=== PATIENT | female | born 1970 | race Caucasian/White ===

== ENCOUNTER 2017-07-20 10:06 | Emergency (ER) | payer OTHER ==
[~2017-07-20] VITALS: Ht 154.9 cm; Wt 84.1 kg
[~2017-07-20 10:06] MED LIST: ALBU1AER9 INH
[2017-07-20 10:15] VITALS: TEMP 36.7; Ht 154.9 cm; Wt 84.1 kg
--- NOTE | 2017-07-20 10:37 | EMERGENCY ROOM VISIT NOTE ---
History Report prepared by Charis: Bolivar Gonzalez Under the Supervision of: Dr. Mariano Awan M.D. First contact with patient: 10:18 Chief Complaint: CHEST PAIN Stated Complaint: CHEST PAIN History of Present Illness The patient is a 47 year old white female with a past medical history of pleurisy and chronic rashes who presents to the ED with a cc of intermittent chest pain, tightness, and pressure beginning two weeks ago that lasts for a second or two. Positive shortness of breath, bloating, and dry cough. Negative nausea, vomiting, recent car travel, plane travel. She called her doctor this morning, and they told her to come in for evaluation.The patient has a family history of CT, stroke, and cancer. She smokes marijuana, and she took an antacid which did not help. Source of History: patient Onset: two weeks ago Position: chest Quality: pressure, other (tightness) Timing: intermittent Associated Symptoms: + cough, + SOB, No nausea, No vomiting Review of Systems See HPI for pertinent positives and negatives. A total of ten systems were reviewed and were otherwise negative. Past Medical & Surgical Surgical Problems: (1) History of hysterectomy Family History Diabetes mellitus FHx: cancer Hypertension Kidney disease Kidney stones Social History Smoking Status: Current Every Day Smoker Alcohol Use: occasionally Drug Use: none Marital Status: single Occupation Status: employed Current/Historical Medications No Active Prescriptions or Reported Meds Allergies Coded Allergies: BEE STING (Verified Allergy, Unknown, UNK, 07/20/17) Tramadol (Verified Adverse Reaction, Intermediate, NAUSEA;VOMITING, ) Codeine (Verified Adverse Reaction, Mild, GI UPSET;NAUSEA, 07/20/17) Ibuprofen (Verified Adverse Reaction, Mild, GI UPSET;NAUSEA, 07/20/17) Sulfamethoxazole w/Trimethoprim (Verified Adverse Reaction, Mild, blisters , 07/20/17) Uncoded Allergies: SPIDERS (Allergy, Unknown, UNK, 10/22/11) Physical Exam Vital Signs Date Time Temp Pulse Resp B/P (MAP) Pulse Ox O2 Delivery O2 Flow Rate FiO2 07/20/17 12:50 76 18 121/78 98 Room Air 07/20/17 12:04 72 18 122/86 97 Room Air 07/20/17 10:48 99 Room Air 07/20/17 10:46 99 Room Air 07/20/17 10:44 75 10/9/17 10:15 36.7 91 20 120/82 98 Room Air Physical Exam GENERAL: Awake, alert, well-appearing, NAD HENT: Normocephalic, atraumatic. EYES: Normal conjunctiva. Sclera non-icteric. NECK: Supple. No nuchal rigidity. FROM. RESPIRATORY: CTAB, no rhonchi, wheezing, crackles CARDIAC: RRR, no MRG ABDOMEN: Soft, NTND, BS+ MSK: No chest wall TTP, no LE edema NEURO: GCS 15, CN 2-12 intact, moves all 4s on command SKIN: Blanching confluent rash on her back which she states is chronic. No jaundice noted. Medical Decision & Procedures ER Provider Diagnostic Interpretation: Radiology results as stated below per my review and radiologist interpretation: CHEST ONE VIEW PORTABLE CLINICAL HISTORY: Chest pain. COMPARISON STUDY: Chest radiograph and chest CT June 03, 2016. FINDINGS: Lung volumes are normal. Lungs are clear. No pneumothorax or pleural effusion is present. Cardiac size is normal. Mediastinal contours are normal. There is no evidence of pulmonary edema. The appearance of the chest is unchanged. IMPRESSION: No acute cardiopulmonary findings. Electronically signed by: Mason Pop M.D. 07/20/2017 11:01 AM Dictated Date/Time: 07/20/2017 11:00 AM Laboratory Results 07/20/17 10:45 Red Blood Count 4.25, Mean Corpuscular Volume 94.4, Mean Corpuscular Hemoglobin 31.5, Mean Corpuscular Hemoglobin Concent 33.4, Mean Platelet Volume 11.0, Neutrophils (%) (Auto) 49.3, Lymphocytes (%) (Auto) 38.3, Monocytes (%) (Auto) 10.0, Eosinophils (%) (Auto) 1.7, Basophils (%) (Auto) 0.2, Neutrophils # (Auto ) 3.11, Lymphocytes # (Auto) 2.41, Monocytes # (Auto) 0.63, Eosinophils # (Auto ) 0.11, Basophils # (Auto) 0.01 07/20/17 10:45 Test 07/20/17 10:45 07/20/17 11:35 White Blood Count 6.30 K/uL (4.8-10.8) Red Blood Count 4.25 M/uL (4.2-5.4) Hemoglobin 13.4 g/dL (12.0-16.0) Hematocrit 40.1 % (37-47) Mean Corpuscular Volume 94.4 fL (80-100) Mean Corpuscular Hemoglobin 31.5 pg (25-34) Mean Corpuscular Hemoglobin Concent 33.4 g/dl (32-36) Platelet Count 213 K/uL (130-400) Mean Platelet Volume 11.0 fL (7.4-10.4) Neutrophils (%) (Auto) 49.3 % Lymphocytes (%) (Auto) 38.3 % Monocytes (%) (Auto) 10.0 % Eosinophils (%) (Auto) 1.7 % Basophils (%) (Auto) 0.2 % Neutrophils # (Auto) 3.11 K/uL (1.4-6.5) Lymphocytes # (Auto) 2.41 K/uL (1.2-3.4) Monocytes # (Auto) 0.63 K/uL (0.11-0.59) Eosinophils # (Auto) 0.11 K/uL (0-0.5) Basophils # (Auto) 0.01 K/uL (0-0.2) RDW Standard Deviation 46.6 fL (36.4-46.3) RDW Coefficient of Variation 13.5 % (11.5-14.5) Immature Granulocyte % (Auto) 0.5 % Immature Granulocyte # (Auto) 0.03 K/uL (0.00-0.02) Anion Gap 8.0 mmol/L (3-11) Est Creatinine Clear Calc Drug Dose 76.0 ml/min Estimated GFR () 88.8 Estimated GFR (Non- 76.6 BUN/Creatinine Ratio 14.6 (10-20) Calcium Level 9.4 mg/dl (8.5-10.1) Total Bilirubin 0.4 mg/dl (0.2-1) Direct Bilirubin 0.1 mg/dl (0-0.2) Aspartate Amino Transf (AST/SGOT) 20 U/L (15-37) Alanine Aminotransferase (ALT/SGPT) 27 U/L (12-78) Alkaline Phosphatase 67 U/L (45-117) Troponin I < 0.015 ng/ml (0-0.045) Total Protein 7.7 gm/dl (6.4-8.2) Albumin 4.0 gm/dl (3.4-5.0) Lipase 251 U/L (73-393) Prothrombin Time 10.2 SECONDS (9.0-12.0) Prothromb Time International Ratio 1.0 (0.9-1.1) Activated Partial Thromboplast Time 26.0 SECONDS (21.0-31.0) Partial Thromboplastin Ratio 1.0 Laboratory results reviewed by me ECG Indication: chest pain Rate (beats per minute): 82 Rhythm: normal sinus Findings: T-wave inversion (in lead 3), other (Normal intervals. No other contiguous changes) ED Course 1018: The patient was evaluated in room C9. A complete history and physical exam was performed. 1240: I reevaluated the patient. Discussed results and discharge instructions: She verbalized understanding and agreement. The patient is ready for discharge. Medical Decision The patient is a 47 year old white female with a past medical history of pleurisy and chronic rashes who presents to the ED with a cc of intermittent chest pain, tightness, and pressure beginning two weeks ago that lasts for a second or two. Positive shortness of breath, bloating, and dry cough. Negative nausea, vomiting recent car travel, plane travel. She called her doctor this morning, and they told her to come in for evaluation.The patient has a family history of CT, stroke, and cancer. She smokes marijuana, and she took an antacid which did not help. Triage Nursing notes reviewed. The patient's presentation and history were concerning for etiologies such as cardiac ischemia, aortic dissection, pulmonary embolism, pneumonia, pneumothorax , musculoskeletal, infections, pericarditis, myocarditis, esophageal rupture, gastrointestinal, as well as others were entertained. Patient was seen and evaluated the bedside. Patient was complaining of some left-sided chest pain that of been ongoing for several weeks. Patient denies any RUFFIN or chest pain with exertion. Patient denies any lower extremity swelling. Patient is PRC negative less likely PE. Patient does have a heart score of 3. Patient was told and given follow-up with cardiology. Patient does not need emergent workup given her fairly normal EKG and negative troponin. Patient did not have any acute chest pain. Patient chest x-ray clear. Patient was given strict follow-up, discharge, return precautions. Patient care patient was safely discharged home. Medication Reconcilliation Current Medication List: was personally reviewed by mi Blood Pressure Screening Patient's blood pressure: Normal blood pressure Impression Primary Impression: Left sided chest pain Scribe Attestation The scribe's documentation has been prepared under my direction and personally reviewed by me in its entirety. I confirm that the note above accurately reflects all work, treatment, procedures, and medical decision making performed by me. Departure Information Dispostion Home / Self-Care Prescriptions No Active Prescriptions or Reported Meds Referrals Abdiel Maddox M.D. (PCP) Teja Brooks, D.O. Forms Call Back Authorization, HOME CARE DOCUMENTATION FORM, IMPORTANT VISIT INFORMATION Patient Instructions Chest Pain - [facility], [facility] Additional Instructions Please return to the emergency department if you have worsening or recurrent symptoms not amenable to at-home treatment. Please call for a follow-up appointment with her primary care physician. Please take your medications as prescribed. If you have other concerns and/or complaints please feel free to also call your primary care physician's office or return the ED for further evaluation, management, and treatment. You may take 600 mg Ibuprofen every 6 hours as needed for pain with food for no more than 2 consecutive days. You may take tylenol 1000mg every 6 hours as needed for pain. You may take motrin and tylenol separately or at the same time. Please avoid smoking marijuana. Please call for a follow up appointment w/ Dr. Brooks given your chest pain. You have been examined and treated today on an emergency basis only. This is not a substitute for, or an effort to provide, complete comprehensive medical care. It is impossible to recognize and treat all injuries or illnesses in a single emergency department visit. It is therefore important that you follow up closely with [facility]. Call as soon as possible for an appointment. Thank you for your time and consideration. I look forward to speaking with you again soon. Please don't hesitate to call us if you have any questions.
[2017-07-20 10:48] VITALS: O2SAT 99
[2017-07-20 10:55] LABS: BASO % 0.2 %; BASO ABS # 0.01 K/uL (0-0.2); COMPLETE YES; EOS % 1.7 %; HEMATOCRIT 40.1 % (37-47); IG% 0.5 %; LYMPH % 38.3 %; LYMPH ABS # 2.41 K/uL (1.2-3.4); MEAN CELL VOLUME 94.4 fL (80-100); MEAN CORPUSCULAR HEMOGLOBIN 31.5 pg (25-34); MEAN CORPUSCULAR HGB CONC 33.4 g/dl (32-36); NEUT % 49.3 %; PLATELET COUNT 213 K/uL (130-400); RED BLOOD COUNT 4.25 M/uL (4.2-5.4)
--- NOTE | 2017-07-20 11:02 | DIAGNOSTIC IMAGING REPORT ---
CHEST ONE VIEW PORTABLE CLINICAL HISTORY: Chest pain. COMPARISON STUDY: Chest radiograph and chest CT June 03, 2016. FINDINGS: Lung volumes are normal. Lungs are clear. No pneumothorax or pleural effusion is present. Cardiac size is normal. Mediastinal contours are normal. There is no evidence of pulmonary edema. The appearance of the chest is unchanged. IMPRESSION: No acute cardiopulmonary findings. Electronically signed by: Mason Pop M.D. 07/20/2017 11:01 AM Dictated Date/Time: 07/20/2017 11:00 AM
[2017-07-20 11:21] LABS: ALT/SGPT 27 U/L (12-78); BLOOD UREA NITROGEN 13 mg/dl (7-18); BUN/CREATININE RATIO 14.6 (10-20); CALCIUM 9.4 mg/dl (8.5-10.1); CARBON DIOXIDE 24 mmol/L (21-32); CHLORIDE 106 mmol/L (98-107); CREATININE 0.89 mg/dl (0.60-1.20); GLUCOSE 106 mg/dl (70-99); SODIUM 138 mmol/L (136-145)
[2017-07-20 11:26] LABS: ALKALINE PHOSPHATASE 67 U/L (45-117); AST/SGOT 20 U/L (15-37)
[2017-07-20 11:56] LABS: PROTHROMBIN TIME (PATIENT) 10.2 SECONDS (9.0-12.0)
[2017-07-20 12:50] VITALS: BP 121/78; PULSE 76; O2SAT 98
== END 2017-07-20 12:52 | disposition home or self-care (01) ==
LOC: C.EDB 10:08 → C.EDC 12:52
DX: R07.9 Chest pain, unspecified (principal); Z82.49 Family history of ischemic heart disease and other diseases of the circulatory system; Z80.9 Family history of malignant neoplasm, unspecified; Z82.3 Family history of stroke; F12.90 Cannabis use, unspecified, uncomplicated; Z90.710 Acquired absence of both cervix and uterus; Z83.3 Family history of diabetes mellitus

== ENCOUNTER 2025-06-14 08:58 | Inpatient (IN) ==
--- NOTE | 2025-06-14 09:34 | Emergency Department Note ---
Impression & Plan Hypoxia, Bilateral wheezing ED Provider Note Diagnosis: Hypoxia, wheezing Disposition: Admission Condition: Good CHIEF COMPLAINT: Shortness of breath HPI: Patient is a 55-year-old female presenting with worsening shortness of breath. I saw the patient on June 08 approximately 5 to 6 days prior diagnosed her with pneumonia and started on doxycycline. Patient states that since that time she has become more short of breath. Patient states over the past 3 days she has started to have wheezing. Patient denies any history of asthma. Patient has not had fevers at home. Patient audibly wheezing upon arrival in the emergency room and evaluation. PAST MEDICAL HISTORY: See Below PAST SURGICAL HISTORY: See Below SOCIAL HISTORY: See Below HOME MEDICATIONS: See Below ALLERGIES: See Below VITALS: See Below PHYSICAL EXAMINATION: GENERAL: Moderate distress EYE EXAM: Normal conjunctiva. OROPHARYNX: Moist mucus membranes. Grossly normal dentition. NECK: Supple, LUNGS: Audible wheezing bilaterally HEART: Tachycardia ABDOMEN: Abdomen soft, non-tender, normo-active bowel sounds, no masses, no rebound or guarding BACK: No CVA TTP. SKIN: No rashes and no bruising. UPPER EXTREMITIES: Upper extremities are grossly normal LOWER EXTREMITIES: Grossly normal, no edema. NEURO EXAM: A&O x3,, normal speech, moves all 4 extremities PSYCH: Cooperative MEDICAL DECISION MAKING: Reviewed external documents: History obtained from: Patient ER Course: Patient is a 55-year-old female presenting with complaint of worsening shortness of breath. Patient audibly wheezing on exam today. Patient diagnosed with pneumonia 4 to 5 days prior. Patient chest x-ray today clear. Patient does troponin and BNP negative. Patient's COVID testing negative. Patient given an hour-long DuoNeb treatment and steroids. Patient on reevaluation became hypoxic requiring 2 L nasal cannula oxygen support. Patient on reevaluation having audible wheezing again and ordered another DuoNeb treatment. Patient mated to hospital service further treatment and evaluation Labs (independently interpreted) are significant for: No leukocytosis, negative troponin Imaging results (independently interpreted): Chest x-ray clear EKG interpretation (independently interpreted): Sinus tachycardia no ST segment elevation or depression Medications given: DuoNebs x 3, Solu-Medrol Consultants: Hospitalist service Triage Nursing notes reviewed and agree them. Vital Signs: reviewed and remarkable for: Tachycardia Critical care time 40 minutes, patient acutely hypoxic does not use oxygen at baseline. Patient requiring greater than 3 DuoNeb treatments with continued wheezing. Past Med/Surg History Problem List (Updated 06/14/25 @ 14:54 by Miguel Ángel Cuevas DO) Bilateral wheezing (Acute) Hypoxia (Acute) Hemoptysis COPD (chronic obstructive pulmonary disease) Tick bite (Acute) Weakness (Acute) Chest pain (Acute) Hypothyroid COVID-19 (Acute) Person under investigation for COVID-19 (Acute) Breast swelling Sensorineural hearing loss (SNHL) of both ears Encounter for examination following treatment at hospital Screening for breast cancer Decreased hearing of both ears Irritation of vulva Mucosal irritation of oral cavity Sorethroat Mallet deformity of left ring finger Seen by ortho, had splint x 6 wks. Still not resolved. Encounter for pre-operative examination Dysmenorrhea (Acute) Back pain (Acute) Tendon injury Finger pain Medical History (Updated 06/14/25 @ 14:54 by Miguel Ángel Cuevas DO) Ovarian cyst X2 Acid reflux SELF DX History of pleurisy MOST RECENT : LAST MONTH..RESOLVED Surgical History History of colonoscopy History of hernia surgery History of neck surgery DENIES LIMITED ROM S/P endometrial ablation History of hysterectomy Family History Mother Deep vein thrombosis Coronary heart disease Alzheimer disease Myocardial infarction Father Dextrocardia Lung cancer Brother Colorectal cancer at 50 yr age Family history of esophageal cancer Brother Cirrhosis of liver Grandmother (Maternal) Breast cancer Denies family history of Ovarian cancer Prostate cancer Social History Smoking Status: Current every day smoker Tobacco Type: Cigarettes Do You Dip or Chew Tobacco: No; Hx Alcohol Use: Yes Hx Substance Use: Yes Last Used Substance: Hours (ago) Last Used Substance Other:: This morning Substance Use Type Other:: "JOINT OR 2 A DAY"/ EDU GIVEN Preferred Language: Sami Communication Ability: Effective Info Specialist Required: No Beliefs That Will Affect Care: None marital status: Current Living Situation: Spouse Current Living Situation Comment: LIVES WITH FRIENDKALE Feels Safe at Home: Yes Dental Care, Regularly: Yes Seatbelt Use: always Assistive Devices: Glasses Allergies Allergies Allergy/AdvReac Type Severity Reaction Status Date / Time bee venom protein (honey bee) Allergy Severe THROAT Verified 06/14/25 13:15 SWELLS UP spider venom Allergy Severe CAN CARRY Unverified 06/14/25 13:15 SAME VENOM BEES, BEE ALLERGY : THROAT SWELLING cyclobenzaprine Allergy Intermediate itching Verified 06/14/25 13:15 [From Flexeril] sulfamethoxazole Allergy Intermediate Hives Verified 06/14/25 13:15 trimethoprim Allergy Intermediate Hives Verified 06/14/25 13:15 codeine AdvReac Intermediate GI Verified 06/14/25 13:15 UPSET;NAUSEA ibuprofen AdvReac Intermediate GI Verified 06/14/25 13:15 UPSET;NAUSEA NSAIDS (Non-Steroidal AdvReac Intermediate All Unverified 06/14/25 13:15 Anti-Inflamma anti-inflammatory meds cause GI Upset paroxetine [From Paxil] AdvReac Intermediate Nausea Verified 06/14/25 13:15 tramadol AdvReac Intermediate NAUSEA;VOMI Verified 06/14/25 13:15 TING Home Meds Previous Rx's Medication Instructions Recorded doxycycline hyclate 100 mg capsule 100 mg PO BID 7 days #14 caps 06/08/25 Results & Data (ED) Vital Signs Vital Signs - 24 hr 06/14/25 09:12 06/14/25 09:27 06/14/25 09:28 Temperature 36.5 C Temperature Source Temporal Artery Scan Pulse Rate 99 H 113 H 106 H Pulse Rate [Right Finger] Respiratory Rate 22 20 Respiratory Effort / Characteristics Respiratory Pattern Blood Pressure 116/77 Blood Pressure [Left Arm] Blood Pressure Mean 90 Blood Pressure Mean [Left Arm] Pulse Oximetry 96 97 Oxygen Delivery Method Room Air Oxygen Flow Rate Sepsis New/Unexplained Change in Mental Status No Sepsis Action Taken by Nursing No Action Required 06/14/25 09:42 06/14/25 09:54 06/14/25 09:57 Temperature Temperature Source Pulse Rate 96 H Pulse Rate [Right Finger] 94 H 94 H Respiratory Rate 19 18 13 Respiratory Effort / Characteristics Spontaneous Respiratory Pattern Regular Blood Pressure Blood Pressure [Left Arm] 143/99 H Blood Pressure Mean Blood Pressure Mean [Left Arm] 113 Pulse Oximetry 98 98 97 Oxygen Delivery Method Room Air Room Air Oxygen Flow Rate Sepsis New/Unexplained Change in Mental Status Sepsis Action Taken by Nursing 06/14/25 09:57 06/14/25 10:12 06/14/25 10:20 Temperature Temperature Source Pulse Rate 94 H 103 H Pulse Rate [Right Finger] 104 H Respiratory Rate 13 20 19 Respiratory Effort / Characteristics Short of Breath Respiratory Pattern Regular Blood Pressure 143/94 H Blood Pressure [Left Arm] 143/99 H Blood Pressure Mean 133 Blood Pressure Mean [Left Arm] 113 Pulse Oximetry 97 100 100 Oxygen Delivery Method Room Air Nebulizer Oxygen Flow Rate Sepsis New/Unexplained Change in Mental Status Sepsis Action Taken by Nursing 06/14/25 10:30 06/14/25 10:36 06/14/25 10:45 Temperature Temperature Source Pulse Rate 109 H 95 H Pulse Rate [Right Finger] 104 H Respiratory Rate 20 24 13 Respiratory Effort / Characteristics Respiratory Pattern Blood Pressure 125/72 Blood Pressure [Left Arm] 125/72 Blood Pressure Mean 89 Blood Pressure Mean [Left Arm] 89 Pulse Oximetry 100 100 100 Oxygen Delivery Method Nebulizer Oxygen Flow Rate Sepsis New/Unexplained Change in Mental Status Sepsis Action Taken by Nursing 06/14/25 11:00 06/14/25 11:30 06/14/25 11:30 Temperature Temperature Source Pulse Rate 117 H Pulse Rate [Right Finger] 121 H Respiratory Rate 23 18 Respiratory Effort / Characteristics Respiratory Pattern Blood Pressure 128/82 107/77 Blood Pressure [Left Arm] 107/77 Blood Pressure Mean 106 87 Blood Pressure Mean [Left Arm] 87 Pulse Oximetry 99 91 Oxygen Delivery Method Nasal Cannula Oxygen Flow Rate 2 Sepsis New/Unexplained Change in Mental Status Sepsis Action Taken by Nursing 06/14/25 11:48 06/14/25 11:54 06/14/25 11:55 Temperature Temperature Source Pulse Rate 122 H Pulse Rate [Right Finger] Respiratory Rate 16 Respiratory Effort / Characteristics Respiratory Pattern Blood Pressure Blood Pressure [Left Arm] Blood Pressure Mean Blood Pressure Mean [Left Arm] Pulse Oximetry 97 87 L 97 Oxygen Delivery Method Room Air Nasal Cannula Oxygen Flow Rate 3 Sepsis New/Unexplained Change in Mental Status Sepsis Action Taken by Nursing 06/14/25 12:00 06/14/25 12:03 06/14/25 12:30 Temperature Temperature Source Pulse Rate 116 H 120 H Pulse Rate [Right Finger] 115 H Respiratory Rate 16 19 22 Respiratory Effort / Characteristics Respiratory Pattern Blood Pressure 105/74 Blood Pressure [Left Arm] 105/74 Blood Pressure Mean 84 Blood Pressure Mean [Left Arm] 84 Pulse Oximetry 99 99 97 Oxygen Delivery Method Nasal Cannula Oxygen Flow Rate 2 Sepsis New/Unexplained Change in Mental Status Sepsis Action Taken by Nursing 06/14/25 12:36 06/14/25 13:00 06/14/25 13:01 Temperature Temperature Source Pulse Rate 122 H 130 H Pulse Rate [Right Finger] 123 H Respiratory Rate 21 22 24 Respiratory Effort / Characteristics Respiratory Pattern Blood Pressure 105/69 118/74 Blood Pressure [Left Arm] 118/74 Blood Pressure Mean 81 86 Blood Pressure Mean [Left Arm] 88 Pulse Oximetry 94 99 99 Oxygen Delivery Method Nasal Cannula Oxygen Flow Rate 2 Sepsis New/Unexplained Change in Mental Status Sepsis Action Taken by Nursing Laboratory Data 06/14/25 09:46 06/14/25 09:46 Lab Results 06/14/25 06/14/25 06/14/25 Range/Units 09:45 09:46 10:01 WBC 5.46 (4.8-10.8) K/ul RBC 4.09 L (4.20-5.40) M/uL Hgb 12.7 (12.0-16.0) g/dl Hct 37.9 (37.0-47.0) % MCV 92.7 (80.0-100.0) fL MCH 31.1 (25.0-34.0) pg MCHC 33.5 (32.0-36.0) g/dL RDW Std Deviation 45.6 (36.4-46.3) fL RDW Coeff of Ben 13.4 (11.5-14.5) % Plt Count 177 (130-400) K/uL MPV 10.9 (9.4-12.4) fL Immature Gran % (Auto) 0.2 % Neut % (Auto) 68.7 % Lymph % (Auto) 16.3 % Cottle % (Auto) 9.3 % Eos % (Auto) 5.1 % Baso % (Auto) 0.4 % Neut # (Auto) 3.75 (1.40-6.50) K/uL Lymph # (Auto) 0.89 L (1.20-3.40) K/uL Cottle # (Auto) 0.51 (0.11-0.59) K/uL Eos # (Auto) 0.28 (0.00-0.50) K/uL Baso # (Auto) 0.02 (0.00-0.20) K/uL Immature Gran # (Auto) 0.01 (0.01-0.20) K/uL Sodium 141 (136-145) mmol/L Potassium 3.6 (3.5-5.1) mmol/L Chloride 106 (98-107) mmol/L Carbon Dioxide 25 (21-32) mmol/L Anion Gap 10 (3-11) BUN 10 (6-23) mg/dl Creatinine 0.89 (0.6-1.2) mg/dl Est Cr Clr Drug Dosing 69.3 ml/min eGFR 76.04 BUN/Creatinine Ratio 11.2 (10-20) Glucose 104 H (70-99(Fasting)) mg/dl Lactate 1.3 (0.4-2.0) mmol/L Calcium 9.2 (8.6-10.3) mg/dl Magnesium 1.9 (1.7-2.4) mg/dl Total Bilirubin 0.8 (0.2-1.0) mg/dl Direct Bilirubin 0.1 (0-0.2) mg/dl AST 21 (13-39) U/L ALT 18 (7-52) U/L Alkaline Phosphatase 79 (34-104) U/L Troponin I High Sens 2.9 (0-14) pg/ml Total Protein 7.0 (6.0-8.3) gm/dl Albumin 4.0 (3.4-5.0) gm/dl Procalcitonin < 0.02 (0-0.5) ng/ml Urine Color Urine Appearance (Clear) Urine pH (4.5-7.5) Ur Specific Reliance (1.000-1.030) Urine Protein (Negative) Urine Glucose (UA) (Negative) Urine Ketones (Negative) Urine Blood (Negative) Urine Nitrite (Negative) Urine Bilirubin (Negative) Urine Urobilinogen (Negative) Ur Leukocyte Esterase (Negative) Urine Comment SARS-CoV-2 (PCR) NEGATIVE (Negative) Influenza Type A (PCR) Negative (Neg) Influenza Type B (PCR) Negative (Neg) RSV (RT-PCR) Negative (Neg) 06/14/25 Range/Units 10:59 WBC (4.8-10.8) K/ul RBC (4.20-5.40) M/uL Hgb (12.0-16.0) g/dl Hct (37.0-47.0) % MCV (80.0-100.0) fL MCH (25.0-34.0) pg MCHC (32.0-36.0) g/dL RDW Std Deviation (36.4-46.3) fL RDW Coeff of Ben (11.5-14.5) % Plt Count (130-400) K/uL MPV (9.4-12.4) fL Immature Gran % (Auto) % Neut % (Auto) % Lymph % (Auto) % Cottle % (Auto) % Eos % (Auto) % Baso % (Auto) % Neut # (Auto) (1.40-6.50) K/uL Lymph # (Auto) (1.20-3.40) K/uL Cottle # (Auto) (0.11-0.59) K/uL Eos # (Auto) (0.00-0.50) K/uL Baso # (Auto) (0.00-0.20) K/uL Immature Gran # (Auto) (0.01-0.20) K/uL Sodium (136-145) mmol/L Potassium (3.5-5.1) mmol/L Chloride (98-107) mmol/L Carbon Dioxide (21-32) mmol/L Anion Gap (3-11) BUN (6-23) mg/dl Creatinine (0.6-1.2) mg/dl Est Cr Clr Drug Dosing ml/min eGFR BUN/Creatinine Ratio (10-20) Glucose (70-99(Fasting)) mg/dl Lactate (0.4-2.0) mmol/L Calcium (8.6-10.3) mg/dl Magnesium (1.7-2.4) mg/dl Total Bilirubin (0.2-1.0) mg/dl Direct Bilirubin (0-0.2) mg/dl AST (13-39) U/L ALT (7-52) U/L Alkaline Phosphatase (34-104) U/L Troponin I High Sens (0-14) pg/ml Total Protein (6.0-8.3) gm/dl Albumin (3.4-5.0) gm/dl Procalcitonin (0-0.5) ng/ml Urine Color Yellow Urine Appearance Clear (Clear) Urine pH 8.0 H (4.5-7.5) Ur Specific Reliance 1.006 (1.000-1.030) Urine Protein Negative (Negative) Urine Glucose (UA) Negative (Negative) Urine Ketones Negative (Negative) Urine Blood Negative (Negative) Urine Nitrite Negative (Negative) Urine Bilirubin Negative (Negative) Urine Urobilinogen Negative (Negative) Ur Leukocyte Esterase Negative (Negative) Urine Comment SARS-CoV-2 (PCR) (Negative) Influenza Type A (PCR) (Neg) Influenza Type B (PCR) (Neg) RSV (RT-PCR) (Neg) Administered Medications Hydrocodone Bit/Homatropine Methylb (Hydrocodone/Homatropine Syrup 5mg/1.5mg 5ml Udp) 5 ml PO Q6H PRN PRN Reason: Cough Stop: 06/28/25 13:15 Last Admin: 06/14/25 13:48 Dose: 5 ml Documented By: CHRISSY Discontinued Medications Albuterol (Albut/Ipratrop 3mg/0.5mg Neb 3 Ml Vial) 12 ml NEB ONE ONE; Protocol Stop: 06/14/25 09:28 Last Admin: 06/14/25 09:54 Dose: 12 ml Documented By: NIKOLAS Albuterol (Albut/Ipratrop 3mg/0.5mg Neb 3 Ml Vial) 3 ml NEB NOW STA; Protocol Stop: 06/14/25 12:49 Last Admin: 06/14/25 13:02 Dose: 3 ml Documented By: enedina Guaifenesin (Guaifenesin 600 Mg Tabcr) 1,200 mg PO NOW STA Stop: 06/14/25 13:21 Last Admin: 06/14/25 13:48 Dose: 1,200 mg Documented By: CHRISSY Sodium Chloride (Nss) 1,000 mls @ 999 mls/hr IV .Q1H1M SARAH Stop: 06/14/25 10:30 Last Infusion: 06/14/25 12:22 Dose: Infused Documented By: enedina Admin: 06/14/25 10:05 Dose: 999 mls/hr Documented By: enedina Cefepime HCl (Maxipime 2000mg) 2,000 mg in 20 mls @ 5 mls/min IV NOW STA; Protocol Stop: 06/14/25 09:30 Last Admin: 06/14/25 10:04 Dose: 5 mls/min Documented By: enedina Doxycycline Hyclate 100 mg/ (Dextrose) 100 mls @ 50 mls/hr IV NOW STA Stop: 06/14/25 15:20 Last Admin: 06/14/25 14:32 Dose: Not Given Documented By: ALEXANDREA Ioversol (Optiray 320 125ml) 118 ml IV ONCE ONE Stop: 06/14/25 13:30 Last Admin: 06/14/25 13:30 Dose: 118 ml Documented By: CHHAYA Methylprednisolone (Methylprednisolone 125 Mg/2 Ml Vial) 125 mg IV NOW STA Stop: 06/14/25 09:28 Last Admin: 06/14/25 10:04 Dose: 125 mg Documented By: cad Imaging Data Radiologist's Impression: Chest X-Ray 06/14/25 09:27 SINGLE VIEW CHEST CLINICAL HISTORY: Sepsis FINDINGS: An AP, portable, upright chest radiograph is compared to study dated 06/08/2025 and correlated with chest CT dated 06/03/2016. The cardiomediastinal silhouette is unremarkable. There is minimal bibasilar atelectasis. The lungs and pleural spaces are otherwise clear. No pneumothorax is seen. The bony thorax is grossly intact. IMPRESSION: No active disease in the chest. ACT 112: Negative or not required by law. Electronically signed by: Elijah Porter M.D. 06/14/2025 9:46 AM Chest CTA 06/14/25 13:11 CT ANGIOGRAM OF THE CHEST CLINICAL HISTORY: Cough. Hemoptysis. History of recent travel. COMPARISON STUDY: Chest x-ray dated 06/14/2025 TECHNIQUE: Following the IV administration of 118 cc of Optiray 320, CT angiogram of the chest was performed from the upper abdomen to the thoracic inlet utilizing the pulmonary embolus protocol. Images are reviewed in the axial, sagittal, and coronal planes. 3-D MIPS images are created and assessed. IV contrast was administered without complication. A dose lowering technique was utilized adhering to the principles of ALARA. CT DOSE: 673.85 mGy.cm FINDINGS: The visualized portions of thyroid are unremarkable. Left axillary lymph nodes are the upper limits of normal in size. There are no pathologically enlarged hilar or mediastinal lymph nodes. There is no pneumothorax. There are no pleural effusions. There is bilateral lower lobe mucus plugging, left greater than right. With left medial basilar atelectatic change. There is mild lower lobe bronchial wall thickening. There is evidence of thoracic aortic dilatation. There are no pulmonary artery filling defects to indicate acute pulmonary embolism. Degenerative changes are present within the thoracic spine. There is a mild scoliosis. There are no suspicious lytic or blastic skeletal lesions. IMPRESSION: 1. No evidence of acute pulmonary embolism 2. Mild lower lobe bronchial wall thickening with areas of bilateral mucous plugging, left greater than right, and left lower lobe atelectatic change. The findings are likely on an infectious/inflammatory basis. ACT 112: Negative or not required by law. Electronically signed by: Carl Bowser M.D. 06/14/2025 1:58 PM Discharge Plan Visit Data Chief Complaint: Illness Stated Complaint: PNEUMONIA WORSENING ED Provider: Miguel Ángel Cuevas Discharge Problem: Hypoxia, Bilateral wheezing Condition: Serious
--- NOTE | 2025-06-14 09:47 | XRay Report ---
SINGLE VIEW CHEST CLINICAL HISTORY: Sepsis FINDINGS: An AP, portable, upright chest radiograph is compared to study dated 06/08/2025 and correlat ed with chest CT dated 06/03/2016. The cardiomediastinal silhouette is unremarkable. There is minimal bibasilar atelectasis. The lungs and pleural spaces are otherwise clear. No pneumothorax is seen. The bony thorax is grossly intact. IMPRESSION: No active disease in the chest. ACT 112: Negative or not required by law. Electronically signed by: Elijah Porter M.D. 06/14/2025 9:46 AM
[2025-06-14] MEDS: ALBUT/IPRATROP 3MG/0.5MG NEB 3 ML VIAL NEB ONE (09:54)
[2025-06-14 09:57] LABS: Hematocrit (blood only) 37.9 % (37.0-47.0); Hemoglobin 12.7 g/dl (12.0-16.0); Immature Granulocytes # (auto) 0.01 K/uL (0.01-0.20); Immature Granulocytes % (auto) 0.2 %; Mean Corpuscular Hemoglobin 31.1 pg (25.0-34.0); Mean Corpuscular Volume 92.7 fL (80.0-100.0); Platelet Count 177 K/uL (130-400); RDW Standard Deviation 45.6 fL (36.4-46.3); Red Blood Count 4.09 M/uL (4.20-5.40); White Blood Count 5.46 K/ul (4.8-10.8)
[2025-06-14] MEDS: CEFEPIME 2000MG 2,000 MG/20 ML SYR IV STA (10:04)
[2025-06-14] MEDS: SODIUM CHLORIDE 0.9% 1,000 ML IV SCH ×2 (10:05→15:06)
[2025-06-14 10:16] LABS: Alanine Aminotransferase 18.0 U/L (7-52); Alkaline Phosphatase 79.0 U/L (34-104); Anion Gap 10.0 (3-11); Bilirubin,Total 0.8 mg/dl (0.2-1.0); Blood Urea Nitrogen 10.0 mg/dl (6-23); Calcium 9.2 mg/dl (8.6-10.3); Carbon Dioxide 25.0 mmol/L (21-32); Chloride 106.0 mmol/L (98-107); Creatinine Clr Calc Pharmacy 69.3 ml/min; Glucose 104.0 mg/dl (70-99(Fasting)); Magnesium 1.9 mg/dl (1.7-2.4); Potassium 3.6 mmol/L (3.5-5.1); Sodium 141.0 mmol/L (136-145); Total Protein 7.0 gm/dl (6.0-8.3)
[2025-06-14 11:03] LABS: Influenza A virus by PCR Negative (Neg); Influenza B virus by PCR Negative (Neg); SARS CoV2 RNA(COVID-19) Ceph NEGATIVE (Negative)
[2025-06-14 11:10] LABS: Appearance Urine Clear (Clear); Glucose Urine UA Negative (Negative)
[2025-06-14] MEDS: ALBUT/IPRATROP 3MG/0.5MG NEB 3 ML VIAL NEB STA (13:02)
[2025-06-14] MEDS ORDERED: LEVALBUTEROL 1.25 MG/3 ML NEB NEB PRN (13:14)
[2025-06-14] MEDS ORDERED: ALUMINUM/MAGNESIUM SUSP 30 ML UDC PO PRN (13:18)
[2025-06-14] MEDS ORDERED: POLYETHYLENE (MIRALAX) 17 GM PACK PO PRN (13:18)
[2025-06-14] MEDS ORDERED: ONDANSETRON INJ 2 MG/ML 2 ML VIAL IV PRN (13:18)
[2025-06-14] MEDS: OPTIRAY 320 125ml IV ONE (13:30)
--- NOTE | 2025-06-14 13:33 | History & Physical Report ---
Date of Service June 14, 2025 Assessment & Plan (1) Pneumonia: Plan Possible community-acquired pneumonia Hemoptysis Rule out pulmonary embolism Patient comes in with worsening cough with blood-tinged sputum, subjective fever, now has wheezing. Patient denies history of asthma, reports recent long travel. See HPI. Imaging CXR with no acute finding. Will get CTA chest. Continue with cefepime, doxycycline, Solu-Medrol. Scheduled DuoNeb, as needed levalbuterol. Pulmonology consult. Telemetry monitoring. DVT prophylaxis: SCD re: hemoptysis. Full code History of Present Illness Chief Complaint: worsening sob, cough, now w/ fever, wheeze and blood tinged sputum, hypoxia noted in ED. Primary Care Provider: Ciarra Kauffman MD 55-year-old lady with PMH of allergic rhinitis, class I obesity, dermatitis, cervical DDD status post cervical spinal fusion presents to the ED with complaint of worsening cough/shortness of breath now associated with blood- tinged sputum, wheezing, subjective fever. Patient was evaluated in the ED about 5 days ago and was discharged with doxycycline for possible pneumonia. Patient reports compliance with the antibiotic. Since last 3 days [employer]LECT[employer], patient reports worsening cough with greenish/yellow sputum now with blood-tinged, reports having subjective fever but denies measuring her temperature at home, reports noting wheezing. Patient denies history of asthma. Patient was noted to be hypoxic in the ED, saturating at 88% on room air and hence was put on nasal cannula oxygen. Patient reports some nausea, denies vomiting, reports poor appetite, denies pain or burning while passing urine. Patient denies acute changes in her bowel habit. Of note, patient reports long travel via car in February [to and from [place]] and in March/April [to/fro [place]]. Patient reports smoking marijuana, reports quit smoking tobacco in 1999, reports very occasional use of alcohol, denies recreational drug use. Medications reviewed with the patient at bedside. Plan of care discussed with the patient in detail, she voiced understanding. Full code Allergies Allergy/AdvReac Type Severity Reaction Status Date / Time bee venom protein (honey bee) Allergy Severe THROAT Verified 06/14/25 13:15 SWELLS UP spider venom Allergy Severe CAN CARRY Unverified 06/14/25 13:15 SAME VENOM BEES, BEE ALLERGY : THROAT SWELLING cyclobenzaprine Allergy Intermediate itching Verified 06/14/25 13:15 [From Flexeril] sulfamethoxazole Allergy Intermediate Hives Verified 06/14/25 13:15 trimethoprim Allergy Intermediate Hives Verified 06/14/25 13:15 codeine AdvReac Intermediate GI Verified 06/14/25 13:15 UPSET;NAUSEA ibuprofen AdvReac Intermediate GI Verified 06/14/25 13:15 UPSET;NAUSEA NSAIDS (Non-Steroidal AdvReac Intermediate All Unverified 06/14/25 13:15 Anti-Inflamma anti-inflammatory meds cause GI Upset paroxetine [From Paxil] AdvReac Intermediate Nausea Verified 06/14/25 13:15 tramadol AdvReac Intermediate NAUSEA;VOMI Verified 06/14/25 13:15 TING Home Medications Medication Instructions Recorded Confirmed Type doxycycline hyclate 100 mg capsule 100 mg PO BID 7 days #14 caps 06/08/25 06/14/25 Rx Past Med/Surg History Problem List (Updated 06/08/25 @ 22:13 by Miguel Ángel Cuevas DO) Tick bite (Acute) Pneumonia (Acute) Weakness (Acute) Chest pain (Acute) Hypothyroid COVID-19 (Acute) Person under investigation for COVID-19 (Acute) Breast swelling Sensorineural hearing loss (SNHL) of both ears Encounter for examination following treatment at hospital Screening for breast cancer Decreased hearing of both ears Irritation of vulva Mucosal irritation of oral cavity Sorethroat Mallet deformity of left ring finger Seen by ortho, had splint x 6 wks. Still not resolved. Encounter for pre-operative examination Dysmenorrhea (Acute) Back pain (Acute) Tendon injury Finger pain Medical History (Updated 06/08/25 @ 22:13 by Miguel Ángel Cuevas DO) Ovarian cyst X2 Acid reflux SELF DX History of pleurisy MOST RECENT : LAST MONTH..RESOLVED Surgical History History of colonoscopy History of hernia surgery History of neck surgery DENIES LIMITED ROM S/P endometrial ablation History of hysterectomy Family History Mother Deep vein thrombosis Coronary heart disease Alzheimer disease Myocardial infarction Father Dextrocardia Lung cancer Brother Colorectal cancer at 50 yr age Family history of esophageal cancer Brother Cirrhosis of liver Grandmother (Maternal) Breast cancer Denies family history of Ovarian cancer Prostate cancer Social History Smoking Status: Current every day smoker Tobacco Type: Cigarettes Do You Dip or Chew Tobacco: No; Hx Alcohol Use: Yes Hx Substance Use: Yes Last Used Substance: Hours (ago) Last Used Substance Other:: This morning Substance Use Type Other:: "JOINT OR 2 A DAY"/ EDU GIVEN Preferred Language: Welsh Communication Ability: Effective Manager Support Services Required: No Beliefs That Will Affect Care: None marital status: Current Living Situation: Spouse Current Living Situation Comment: LIVES WITH FRIENDKALE Feels Safe at Home: Yes Dental Care, Regularly: Yes Seatbelt Use: always Assistive Devices: Glasses Review of Systems Review of Systems: Negative otherwise mentioned in HPI. Physical Exam Physical Exam: GENERAL: Alert and oriented x3. NAD, on 2L NC O2, also getting breathing treatment. HEENT: No pallor, no icterus. Pupils equal, round and reactive to light. Oral mucosa moist. NECK: No JVD, no neck masses. HEART: S1 and S2 heard. Regular rate and rhythm. No murmur, no gallop. RESPIRATORY SYSTEM: Normal AP diameter. No accessory muscle use. no crackles. b/l decreased breath sounds, no wheeze heard ABDOMEN: Soft, bowel sounds present, nontender, no distention. CENTRAL NERVOUS SYSTEM: No facial droop. Speech is clear. Obeys simple commands. Moves extremities. EXTREMITIES: No edema, no erythema seen. Skin: has macular lesions over trunk and abdomen which pt states are chronic and has not observed acute changes. Results & Data Results & Data Vital Signs (Past 12 Hours) Vital Signs Temp Pulse Pulse Resp BP BP Pulse Ox 06/14/25 13:00 123 H 22 118/74 99 06/14/25 12:36 122 H 21 105/69 94 06/14/25 12:30 120 H 22 97 06/14/25 12:03 116 H 19 105/74 99 06/14/25 12:00 115 H 16 105/74 99 06/14/25 11:55 97 06/14/25 11:54 87 L 06/14/25 11:48 122 H 16 97 06/14/25 11:30 117 H 18 107/77 91 06/14/25 11:30 121 H 23 107/77 99 06/14/25 11:00 128/82 06/14/25 10:45 95 H 13 100 06/14/25 10:36 109 H 24 125/72 100 06/14/25 10:30 104 H 20 125/72 100 06/14/25 10:20 103 H 19 143/94 H 100 06/14/25 10:12 104 H 20 143/99 H 100 06/14/25 09:57 94 H 13 97 06/14/25 09:57 94 H 13 143/99 H 97 06/14/25 09:54 94 H 18 98 06/14/25 09:42 96 H 19 98 06/14/25 09:28 106 H 06/14/25 09:27 113 H 20 97 06/14/25 09:12 36.5 C 99 H 22 116/77 96 O2 Del Method O2 Flow Rate 06/14/25 13:00 Nasal Cannula 2 06/14/25 12:36 06/14/25 12:30 06/14/25 12:03 06/14/25 12:00 Nasal Cannula 2 06/14/25 11:55 Nasal Cannula 3 06/14/25 11:54 Room Air 06/14/25 11:48 06/14/25 11:30 06/14/25 11:30 Nasal Cannula 2 06/14/25 11:00 06/14/25 10:45 06/14/25 10:36 06/14/25 10:30 Nebulizer 06/14/25 10:20 06/14/25 10:12 Nebulizer 06/14/25 09:57 Room Air 06/14/25 09:57 Room Air 06/14/25 09:54 Room Air 06/14/25 09:42 06/14/25 09:28 06/14/25 09:27 06/14/25 09:12 Room Air
[2025-06-14] MEDS: guaiFENesin 600 MG TABCR PO STA (13:48)
--- NOTE | 2025-06-14 13:59 | CT Scan Report ---
CT ANGIOGRAM OF THE CHEST CLINICAL HISTORY: Cough. Hemoptysis. History of recent travel. COMPARISON STUDY: Chest x-ray dated 06/14/2025 TECHNIQUE: Following the IV administration of 118 cc of Optiray 320, CT angiogram of the chest was pe rformed from the upper abdomen to the thoracic inlet utilizing the pulmonary embolus protocol. Images are reviewed in the axial, sagittal, and coronal planes. 3-D MIPS images are created and assessed. I V contrast was administered without complication. A dose lowering technique was utilized adhering to the principles of ALARA. CT DOSE: 673.85 mGy.cm FINDINGS: The visualized portions of thyroid are unremarkable. Left axillary lymph nodes are the upper limits of normal in size. There are no pathologically enlarge d hilar or mediastinal lymph nodes. There is no pneumothorax. There are no pleural effusions. There is bilateral lower lobe mucus pluggin g, left greater than right. With left medial basilar atelectatic change. There is mild lower lobe bro nchial wall thickening. There is evidence of thoracic aortic dilatation. There are no pulmonary artery filling defects to indicate acute pulmonary embolism. Degenerative changes are present within the thoracic spine. There is a mild scoliosis. There are no s uspicious lytic or blastic skeletal lesions. IMPRESSION: 1. No evidence of acute pulmonary embolism 2. Mild lower lobe bronchial wall thickening with areas of bilateral mucous plugging, left greater th an right, and left lower lobe atelectatic change. The findings are likely on an infectious/inflammato ry basis. ACT 112: Negative or not required by law. Electronically signed by: Carl Bowser M.D. 06/14/2025 1:58 PM
--- NOTE | 2025-06-14 14:02 | Pulmonary Consultation ---
Date of Consultation June 14, 2025 Assessment & Plan (1) COPD (chronic obstructive pulmonary disease): (2) Hemoptysis: Plan Impression: 55-year-old female with probable COPD admitted with shortness of breath and wheezing. She had scant hemoptysis. Her CT scan shows no significa nt parenchymal abnormality. No evidence of pneumonia. Recommendations: 1. Probable COPD. Agree with Solu-Medrol. Can likely transition to prednisone relatively quickly. Will add nebulized Perforomist and budesonide to her regiment as well as Incruse. Continue DuoNebs as needed. Will transition to a more palatable outpatient inhaler regimen as the patient improves clinically. 2. No evidence of pneumonia. She is already been on doxycycline so this will be discontinued. Will replace with a azithromycin for acute exacerbation of COPD. 3. Hemoptysis: Scant. No parenchymal abnormality identified. Likely secondary to coughing. No additional intervention required currently unless hemoptysis should increase significantly. 4. Hypoxemia: Continue oxygen titrated to keep saturations at or above 88%. Management of the patient's tachycardia per primary admitting service. Thanks for the opportunity participating in the care of this patient. Feel free to contact us with questions or concerns. Will follow with you History of Present Illness History of Present Illness Asked by hospitalist to evaluate this patient admitted with shortness of breath, hypoxemia, and scant hemoptysis. History is obtained from discussion with the patient as well as review the electronic medical record. The patient is a 55-year-old female with a questionable history of COPD. She is never seen a molding associate or had PFTs performed but believes she was told she had COPD several years ago. She has about a [id number] history and quit smoking about 15 years ago. She was seen in the emergency room last week with shortness of breath and cough and given a diagnosis of pneumonia. She was discharged on doxycycline. She has been taking the doxycycline however shortness of breath is persisted. She has noted some flecks of blood in her sputum which is typically a greenish color. She had increasing shortness of br eath which prompted return to the emergency room. In the emergency room she was tachycardic. She states she feels anxious. CT angiogram was performed which reveals no parenchymal abnormality. She did receive steroids and some bronchodilators. She is wheezing and tachypneic. Allergies Allergy/AdvReac Type Severity Reaction Status Date / Time bee venom protein (honey bee) Allergy Severe THROAT Verified 06/14/25 13:15 SWELLS UP spider venom Allergy Severe CAN CARRY Unverified 06/14/25 13:15 SAME VENOM BEES, BEE ALLERGY : THROAT SWELLING cyclobenzaprine Allergy Intermediate itching Verified 06/14/25 13:15 [From Flexeril] sulfamethoxazole Allergy Intermediate Hives Verified 06/14/25 13:15 trimethoprim Allergy Intermediate Hives Verified 06/14/25 13:15 codeine AdvReac Intermediate GI Verified 06/14/25 13:15 UPSET;NAUSEA ibuprofen AdvReac Intermediate GI Verified 06/14/25 13:15 UPSET;NAUSEA NSAIDS (Non-Steroidal AdvReac Intermediate All Unverified 06/14/25 13:15 Anti-Inflamma anti-inflammatory meds cause GI Upset paroxetine [From Paxil] AdvReac Intermediate Nausea Verified 06/14/25 13:15 tramadol AdvReac Intermediate NAUSEA;VOMI Verified 06/14/25 13:15 TING Home Medications Medication Instructions Recorded Confirmed Type doxycycline hyclate 100 mg capsule 100 mg PO BID 7 days #14 caps 06/08/25 06/14/25 Rx Patient History Medical History (Updated 06/14/25 @ 13:59 by Mahendra Diaz MD) Ovarian cyst X2 Acid reflux SELF DX History of pleurisy MOST RECENT : LAST MONTH..RESOLVED Surgical History History of colonoscopy History of hernia surgery History of neck surgery DENIES LIMITED ROM S/P endometrial ablation History of hysterectomy Family History Mother Deep vein thrombosis Coronary heart disease Alzheimer disease Myocardial infarction Father Dextrocardia Lung cancer Brother Colorectal cancer at 50 yr age Family history of esophageal cancer Brother Cirrhosis of liver Grandmother (Maternal) Breast cancer Denies family history of Ovarian cancer Prostate cancer Social History Smoking Status: Current every day smoker Tobacco Type: Cigarettes Do You Dip or Chew Tobacco: No; Hx Alcohol Use: Yes Hx Substance Use: Yes Last Used Substance: Hours (ago) Last Used Substance Other:: This morning Substance Use Type Other:: "JOINT OR 2 A DAY"/ EDU GIVEN Preferred Language: Polish Communication Ability: Effective Reinsurance Clerk Required: No Beliefs That Will Affect Care: None marital status: Current Living Situation: Spouse Current Living Situation Comment: LIVES WITH FRIEND, KALE Feels Safe at Home: Yes Dental Care, Regularly: Yes Seatbelt Use: always Assistive Devices: Glasses Review of Systems Review of Systems: Please refer to admission H&P. No additions or deletions Physical Exam Constitutional: no acute distress and not ill appearing Neck: trachea midline, no thyromegaly Respiratory: + tachypneic; no cough Auscultation: + wheezes; no crackles Cardiovascular: RRR, no murmur, no edema Gastrointestinal (Abdomen): normal bowel sounds, soft, nontender, no hepatosplenomegaly Musculoskeletal: Extremities: extremities normal to inspection Skin: no rashes, warm and dry Neurologic: Nonfocal exam Lymphatic: no cervical lymphadenopathy Results & Data Results & Data Vital Signs (Past 12 Hours) Vital Signs Temp Pulse Pulse Resp BP BP Pulse Ox 06/14/25 13:00 123 H 22 118/74 99 06/14/25 12:36 122 H 21 105/69 94 06/14/25 12:30 120 H 22 97 06/14/25 12:03 116 H 19 105/74 99 06/14/25 12:00 115 H 16 105/74 99 06/14/25 11:55 97 06/14/25 11:54 87 L 06/14/25 11:48 122 H 16 97 06/14/25 11:30 117 H 18 107/77 91 06/14/25 11:30 121 H 23 107/77 99 06/14/25 11:00 128/82 06/14/25 10:45 95 H 13 100 06/14/25 10:36 109 H 24 125/72 100 06/14/25 10:30 104 H 20 125/72 100 06/14/25 10:20 103 H 19 143/94 H 100 06/14/25 10:12 104 H 20 143/99 H 100 06/14/25 09:57 94 H 13 97 06/14/25 09:57 94 H 13 143/99 H 97 06/14/25 09:54 94 H 18 98 06/14/25 09:42 96 H 19 98 06/14/25 09:28 106 H 06/14/25 09:27 113 H 20 97 06/14/25 09:12 36.5 C 99 H 22 116/77 96 O2 Del Method O2 Flow Rate 06/14/25 13:00 Nasal Cannula 2 06/14/25 12:36 06/14/25 12:30 06/14/25 12:03 06/14/25 12:00 Nasal Cannula 2 06/14/25 11:55 Nasal Cannula 3 06/14/25 11:54 Room Air 06/14/25 11:48 06/14/25 11:30 06/14/25 11:30 Nasal Cannula 2 06/14/25 11:00 06/14/25 10:45 06/14/25 10:36 06/14/25 10:30 Nebulizer 06/14/25 10:20 06/14/25 10:12 Nebulizer 06/14/25 09:57 Room Air 06/14/25 09:57 Room Air 06/14/25 09:54 Room Air 06/14/25 09:42 06/14/25 09:28 06/14/25 09:27 06/14/25 09:12 Room Air Critical Care Results & Data Vital Signs (Past 12 Hours) Vital Signs Temp Pulse Pulse Resp BP BP Pulse Ox 06/14/25 13:41 103/60 06/14/25 13:41 122 H 06/14/25 13:01 130 H 24 118/74 99 06/14/25 13:00 123 H 22 118/74 99 06/14/25 12:36 122 H 21 105/69 94 06/14/25 12:30 120 H 22 97 06/14/25 12:03 116 H 19 105/74 99 06/14/25 12:00 115 H 16 105/74 99 06/14/25 11:55 97 06/14/25 11:54 87 L 06/14/25 11:48 122 H 16 97 06/14/25 11:30 117 H 18 107/77 91 06/14/25 11:30 121 H 23 107/77 99 06/14/25 11:00 128/82 06/14/25 10:45 95 H 13 100 06/14/25 10:36 109 H 24 125/72 100 06/14/25 10:30 104 H 20 125/72 100 06/14/25 10:20 103 H 19 143/94 H 100 06/14/25 10:12 104 H 20 143/99 H 100 06/14/25 09:57 94 H 13 97 06/14/25 09:57 94 H 13 143/99 H 97 06/14/25 09:54 94 H 18 98 06/14/25 09:42 96 H 19 98 06/14/25 09:28 106 H 06/14/25 09:27 113 H 20 97 06/14/25 09:12 36.5 C 99 H 22 116/77 96 O2 Del Method O2 Flow Rate 06/14/25 13:41 06/14/25 13:41 06/14/25 13:01 06/14/25 13:00 Nasal Cannula 2 06/14/25 12:36 06/14/25 12:30 06/14/25 12:03 06/14/25 12:00 Nasal Cannula 2 06/14/25 11:55 Nasal Cannula 3 06/14/25 11:54 Room Air 06/14/25 11:48 06/14/25 11:30 06/14/25 11:30 Nasal Cannula 2 06/14/25 11:00 06/14/25 10:45 06/14/25 10:36 06/14/25 10:30 Nebulizer 06/14/25 10:20 06/14/25 10:12 Nebulizer 06/14/25 09:57 Room Air 06/14/25 09:57 Room Air 06/14/25 09:54 Room Air 06/14/25 09:42 06/14/25 09:28 06/14/25 09:27 06/14/25 09:12 Room Air Lab & Micro Results (Past 24 Hours) RBC 4.09 M/uL (4.20-5.40) L 06/14/25 WBC 5.46 K/ul (4.8-10.8) 06/14/25 Hgb 12.7 g/dl (12.0-16.0) 06/14/25 Hct 37.9 % (37.0-47.0) 06/14/25 MCV 92.7 fL (80.0-100.0) 06/14/25 MCH 31.1 pg (25.0-34.0) 06/14/25 MCHC 33.5 g/dL (32.0-36.0) 06/14/25 RDW Standard Deviation 45.6 fL (36.4-46.3) 06/14/25 RDW Coefficient of Variation 13.4 % (11.5-14.5) 06/14/25 Plt Count 177 K/uL (130-400) 06/14/25 MPV 10.9 fL (9.4-12.4) 06/14/25 Neutrophils (%) (Auto) 68.7 % 06/14/25 Lymphocytes (%) (Auto) 16.3 % 06/14/25 Monocytes # (Auto) 0.51 K/uL (0.11-0.59) 06/14/25 Eosinophils # (Auto) 0.28 K/uL (0.00-0.50) 06/14/25 Immature Granulocyte % (Auto) 0.2 % 06/14/25 Neutrophils # (Auto) 3.75 K/uL (1.40-6.50) 06/14/25 Lymphocytes # (Auto) 0.89 K/uL (1.20-3.40) L 06/14/25 Monocytes # (Auto) 0.51 K/uL (0.11-0.59) 06/14/25 Eosinophils # (Auto) 0.28 K/uL (0.00-0.50) 06/14/25 Basophils # (Auto) 0.02 K/uL (0.00-0.20) 06/14/25 Immature Granulocyte # (Auto) 0.01 K/uL (0.01-0.20) 5 Na 141 mmol/L (136-145) 06/14/25 K 3.6 mmol/L (3.5-5.1) 06/14/25 Cl 106 mmol/L (98-107) 06/14/25 CO2 25 mmol/L (21-32) 06/14/25 Anion Gap 10 (3-11) 06/14/25 BUN 10 mg/dl (6-23) 06/14/25 Creatinine 0.89 mg/dl (0.6-1.2) 06/14/25 BUN/Creatinine Ratio 11.2 (10-20) 06/14/25 Glu 104 mg/dl (70-99(Fasting)) H 06/14/25 Ca 9.2 mg/dl (8.6-10.3) 06/14/25 Total Bilirubin 0.8 mg/dl (0.2-1.0) 06/14/25 Direct Bilirubin 0.1 mg/dl (0-0.2) 06/14/25 AST 21 U/L (13-39) 06/14/25 ALT 18 U/L (7-52) 06/14/25 Alkaline Phosphatase 79 U/L (34-104) 06/14/25 TP 7.0 gm/dl (6.0-8.3) 06/14/25 Albumin 4.0 gm/dl (3.4-5.0) 06/14/25 Mg 1.9 mg/dl (1.7-2.4) 06/14/25 09:46 Calcium Level 9.2 mg/dl (8.6-10.3) 06/14/25 09:46 Diagnostic Findings (Past 24 Hours) Chest X-Ray 06/14/25 09:27 SINGLE VIEW CHEST CLINICAL HISTORY: Sepsis FINDINGS: An AP, portable, upright chest radiograph is compared to study dated 06/08/2025 and correlated with chest CT dated 06/03/2016. The cardiomediastinal silhouette is unremarkable. There is minimal bibasilar atelectasis. The lungs and pleural spaces are otherwise clear. No pneumothorax is seen. The bony thorax is grossly intact. IMPRESSION: No active disease in the chest. ACT 112: Negative or not required by law. Electronically signed by: Elijah Porter M.D. 06/14/2025 9:46 AM I & O Totals 24 Hours 06/13/25 06/14/25 06/15/25 06:59 06:59 06:59 Intake Total 1000 / 1000 Balance 1000 / 1000 Cumulative 06/14/25 08:58 thru 06/14/25 12:22 Intake Total 1000 Balance 1000 RT Ventilator Mngmt (Last Documented) Ventilator Ordered Settings Respiratory Rate 24 06/14/25 13:01 Ventilator - PT Measurements Respiratory Rate 24 PG Care Time/CCT Total # of Minutes Spent Total Time Spent with Patient: Total time spent is greater than 50% in coordination of care (as documented) at patient's floor/unit and/or counseling patient: Coding Level of Care Code 98565 IN/OBS CONSULT LVL 4,60M Diagnoses COPD (chronic obstructive pulmonary disease) J44.9 Hemoptysis R04.2
[2025-06-14] MEDS: DOXYCYCLINE HYCLATE 100 MG in DEXTROSE 5% MINI-B 100 ML IV STA (14:32)
[2025-06-14] MEDS: AZITHROMYCIN 250 MG TAB PO ONE (15:06)
--- NOTE | 2025-06-14 16:23 | Electrocardiogram Report ---
Test Reason : Blood Pressure : */* mmHG Vent. Rate : 106 BPM Atrial Rate : 106 BPM P-R Int : 170 ms QRS Dur : 74 ms QT Int : 366 ms P-R-T Axes : -20 -3 -13 degrees QTcB Int : 486 ms Sinus tachycardia Low voltage QRS Cannot rule out Inferior infarct (cited on or before 08-Jun-2025) Nonspecific ST abnormality Abnormal ECG When compared with ECG of 08-Jun-2025 18:32, Vent. rate has increased by 43 bpm Confirmed by Noe Stephens ([id number]) on 06/14/2025 4:23:13 PM Referred By: REFERRED SELF Confirmed By: Noe Stephens
[2025-06-14] MEDS ORDERED: CEFEPIME 2000MG 2,000 MG/20 ML SYR IV SCH (18:00)
[2025-06-14] MEDS: BUDESONIDE 0.5 MG/2 ML VIAL (PULMICORT) NEB SCH (20:13)
[2025-06-14] MEDS: FORMOTEROL 20 MCG/2 ML VIAL NEB SCH (20:14)
[2025-06-14] MEDS: ALBUT/IPRATROP 3MG/0.5MG NEB 3 ML VIAL NEB SCH (20:16)
[2025-06-14] MEDS: guaiFENesin 600 MG TABCR PO SCH (21:43)
[2025-06-14] MEDS: FAMOTIDINE 20 MG TAB PO SCH (21:44)
[2025-06-14] MEDS: ACETAMINOPHEN 325 MG TAB PO PRN (22:38)
[2025-06-15] MEDS: DOXYCYCLINE HYCLATE 100 MG in DEXTROSE 5% MINI-B 100 ML IV SCH (03:44)
[2025-06-15 06:49] LABS: Hematocrit (blood only) 34.1 % (37.0-47.0); Hemoglobin 11.5 g/dl (12.0-16.0); Mean Corpuscular Hemoglobin 31.8 pg (25.0-34.0); Mean Corpuscular Volume 94.2 fL (80.0-100.0); Platelet Count 186 K/uL (130-400); RDW Standard Deviation 46.7 fL (36.4-46.3); Red Blood Count 3.62 M/uL (4.20-5.40); White Blood Count 10.51 K/ul (4.8-10.8)
[2025-06-15 07:05] LABS: Anion Gap 7.0 (3-11); Blood Urea Nitrogen 9.0 mg/dl (6-23); Calcium 9.1 mg/dl (8.6-10.3); Carbon Dioxide 25.0 mmol/L (21-32); Chloride 109.0 mmol/L (98-107); Creatinine Clr Calc Pharmacy 73.5 ml/min; Glucose 180.0 mg/dl (70-99(Fasting)); Magnesium 1.9 mg/dl (1.7-2.4); Potassium 3.9 mmol/L (3.5-5.1); Sodium 141.0 mmol/L (136-145)
[2025-06-15] MEDS: ADVANCED PROBIOTIC 625 MG CAPSULE PO SCH (08:09)
[2025-06-15] MEDS: AZITHROMYCIN 250 MG TAB PO SCH (08:10)
--- NOTE | 2025-06-15 08:25 | Pulmonology Progress Note ---
Date of Service June 15, 2025 Assessment & Plan (1) COPD (chronic obstructive pulmonary disease): (2) Hemoptysis: Plan Impression: 55-year-old female with probable COPD admitted with shortness of breath and wheezing. She had scant hemoptysis. Her CT scan shows no significant parenchymal abnormality. No evidence of pneumonia. Recommendations: 1. Probable COPD. Continue Solu-Medrol. Can likely transition to prednisone relatively quickly. Continue nebulized Perforomist and budesonide to her regiment as well as Incruse. Continue DuoNebs as needed. Will transition to a more palatable outpatient inhaler regimen as the patient improves clinically. 2. No evidence of pneumonia. Continue azithromycin for acute exacerbation of COPD. 3. Hemoptysis: Scant. No parenchymal abnormality identified. Likely secondary to coughing. No additional intervention required currently unless hemoptysis should increase significantly. 4. Hypoxemia: Continue oxygen titrated to keep saturations at or above 88%. Thanks for the opportunity participating in the care of this patient. Feel free to contact us with questions or concerns. Will follow with you Admission and Anticipated Discharge Date Admission Date: June 14, 2025 Subjective Patient seen and examined. EMR reviewed. The patient states her respiratory status is improved but she is not back to baseline. She continues to experience some wheezing and chest tightness although it is better than yesterday. She has not had any more hemoptysis. She is occasionally coughing. She is tolerating a diet and appears much more comfortable. Review of Systems 2 Review of Systems: All systems reviewed & are unremarkable except as noted in Subjective Physical Exam 2 Constitutional: no acute distress and not ill appearing Neck: trachea midline, no thyromegaly Respiratory: + tachypneic; no cough Auscultation: + wheezes; no crackles Cardiovascular: RRR, no murmur, no edema Gastrointestinal (Abdomen): normal bowel sounds, soft, nontender, no hepatosplenomegaly Musculoskeletal: Extremities: extremities normal to inspection Skin: no rashes, warm and dry Lymphatic: no cervical lymphadenopathy Results & Data Results & Data Vital Signs (Past 12 Hours) Vital Signs Temp Pulse Pulse Resp BP Pulse Ox O2 Del Method 06/15/25 07:57 36.5 C 110 H 18 114/67 94 Nasal Cannula 06/15/25 07:26 102 H 18 98 Nasal Cannula 06/15/25 07:10 Nasal Cannula 06/15/25 02:41 36.5 C 100 H 18 100/60 98 Nasal Cannula 06/15/25 01:07 101 H 18 98 Nasal Cannula 06/14/25 23:55 110 H 06/14/25 22:42 36.6 C 111 H 18 123/67 96 Nasal Cannula O2 Flow Rate 06/15/25 07:57 2 06/15/25 07:26 2 06/15/25 07:10 2 06/15/25 02:41 06/15/25 01:07 2 06/14/25 23:55 06/14/25 22:42 Laboratory Results 06/15/25 06:07 06/15/25 06:07 Diagnostic Findings No new imaging PG Care Time/CCT Total # of Minutes Spent Total Time Spent with Patient: Total time spent is greater than 50% in coordination of care (as documented) at patient's floor/unit and/or counseling patient: Coding Level of Care Code 89571 SUB INP/OBS CARE 2/35MIN Diagnoses COPD (chronic obstructive pulmonary disease) J44.9 Hemoptysis R04.2
[2025-06-15] MEDS: METOPROLOL TARTRATE 25 MG TAB PO SCH (09:14)
[2025-06-15] MEDS: UMECLIDINIUM BROMIDE 62.5MCG/BLISTER 7 PUFFS/INHALER INH SCH (09:34)
--- NOTE | 2025-06-15 13:56 | Hospitalist Progress Note ---
Date of Service June 15, 2025 Assessment & Plan (1) COPD (chronic obstructive pulmonary disease): Plan #COPD exacerbation -Briefly hypoxic at 87% on admission and was on O2 overnight -CTA chest negative for PE, PNA. Did show some bronchitis. -Pulm was consulted for scant hemoptysis on admission, now resolved -Now on room air Plan -Continue solumedrol, decrease to BID -Continue nebs -Azith x 3 days -IS and flutter therapy -Anticipate Dc home soon. #Sinus tach -Multifactorial due to hypoxia, illness, and beta agonism -EKG reviewed -Start low dose metoprolol for now. Unlikely to need on discharge #History of hypothyroidism -CHeck TSH -Not on meds I spent a total of 36 minutes coordinating, documenting, and providing care for this patient excluding time spent in the performance of separately billed services. This included personally reviewing all current laboratories and imaging studies, medical reconciliation, outpatient chart review and discussion with specialists Admission and Anticipated Discharge Date Admission Date: June 14, 2025 Subjective Feeling well today. still with productive cough. no blood. some SOB. no f/c cp palp abd pain nvd Physical Exam Physical Exam: Vitals and labs reviewed General: Well appearing, NAD HEENT: EOMI, PERRLA Neck: Supple Cardiac: RRR no rubs gallops or murmurs Lungs: exp wheez. no rhonchi or rales. no distress Abd: S NT ND BS positive : Deffered MSK: Full ROM. No obvious deformities Ext: No Edema cyanosis Skin: Warm, Dry Neuro: AOx3 No focal deficits. Psych: Normal Mood Results & Data Results & Data Vital Signs (Past 12 Hours) Vital Signs Temp Pulse Pulse Resp BP Pulse Ox O2 Del Method 06/15/25 13:04 86 14 98 Room Air 06/15/25 11:23 36.7 C 73 18 121/82 99 Room Air 06/15/25 09:40 99 H 06/15/25 09:12 101 H 120/65 06/15/25 07:57 36.5 C 110 H 18 114/67 94 Nasal Cannula 06/15/25 07:26 102 H 18 98 Nasal Cannula 06/15/25 07:10 Nasal Cannula 06/15/25 02:41 36.5 C 100 H 18 100/60 98 Nasal Cannula O2 Flow Rate FiO2 06/15/25 13:04 21 06/15/25 11:23 06/15/25 09:40 06/15/25 09:12 06/15/25 07:57 2 06/15/25 07:26 2 06/15/25 07:10 2 06/15/25 02:41
[2025-06-15 14:38] LABS: Thyroid Stimulating Hormone 1.828 uIu/ml (0.300-4.500)
--- NOTE | 2025-06-16 08:53 | Pulmonology Progress Note ---
Date of Service June 16, 2025 Assessment & Plan (1) COPD (chronic obstructive pulmonary disease): (2) Hemoptysis: Plan Impression: 55-year-old female with probable COPD admitted with shortness of breath and wheezing. She had scant hemoptysis. Her CT scan shows no significant parenchymal abnormality. No evidence of pneumonia. Recommendations: 1. Probable COPD. Okay to transition to oral prednisone. Continue nebulized Perforomist and budesonide to her regiment as well as Incruse. Continue DuoNebs as needed. Will transition to a more palatable outpatient inhaler regimen as the patient improves clinically. Most of her adventitious respiratory sounds appear to be emanating from her neck and this raises the possibility of vocal cord dysfunction superimposed on obstructive lung disease. Outpatient follow-up may be appropriate 2. No evidence of pneumonia. Continue azithromycin for acute exacerbation of COPD. 3. Hemoptysis: Resolved 4. Hypoxemia: Continue oxygen titrated to keep saturations at or above 88%. Thanks for the opportunity participating in the care of this patient. Feel free to contact us with questions or concerns. Will follow with you. Can likely discharge if she does well on oral prednisone Admission and Anticipated Discharge Date Admission Date: June 14, 2025 Subjective Patient seen and examined. EMR reviewed. The patient states she is feeling better but continues to feel slightly "rough". She is coughing. She reports wheezing although most of her adventitious respiratory sounds are heard in the neck and radiating down into the lungs. She is ambulatory. She is on room air currently Review of Systems 2 Review of Systems: All systems reviewed & are unremarkable except as noted in Subjective Physical Exam 2 Constitutional: no acute distress and not ill appearing Neck: trachea midline, no thyromegaly Wheezing heard at the level of the neck Respiratory: no cough and not tachypneic Auscultation: no crackles and no wheezes Cardiovascular: RRR, no murmur, no edema Gastrointestinal (Abdomen): normal bowel sounds, soft, nontender, no hepatosplenomegaly Musculoskeletal: Extremities: extremities normal to inspection Skin: no rashes, warm and dry Lymphatic: no cervical lymphadenopathy Results & Data Results & Data Vital Signs (Past 12 Hours) Vital Signs Temp Pulse Pulse Resp BP Pulse Ox O2 Del Method 06/16/25 07:45 98 H 06/16/25 07:43 36.7 C 89 18 118/70 95 Room Air 06/16/25 07:06 68 16 99 Room Air 06/16/25 05:07 95 H 06/16/25 04:11 36.6 C 63 18 120/77 95 Room Air 06/16/25 00:25 76 17 95 Room Air 06/15/25 23:19 36.8 C 85 18 110/63 97 Room Air 06/15/25 21:11 Room Air Laboratory Results 06/16/25 08:17 06/15/25 06:07 Diagnostic Findings No new imaging PG Care Time/CCT Total # of Minutes Spent Total Time Spent with Patient: Total time spent is greater than 50% in coordination of care (as documented) at patient's floor/unit and/or counseling patient: Coding Level of Care Code 84704 SUB INP/OBS CARE 2/35MIN Diagnoses COPD (chronic obstructive pulmonary disease) J44.9 Hemoptysis R04.2
[2025-06-16] MEDS: predniSONE 20 MG TAB PO SCH (09:20)
--- NOTE | 2025-06-16 10:10 | Hospitalist Progress Note ---
Date of Service June 16, 2025 Assessment & Plan (1) COPD (chronic obstructive pulmonary disease): Plan #COPD exacerbation -Briefly hypoxic at 87% on admission and was on O2 overnight -CTA chest negative for PE, PNA. Did show some bronchitis. -Pulm was consulted for scant hemoptysis on admission, now resolved -Now on room air Plan -Converted to prednisone today by pulm -Continue nebs -Azith -IS and flutter therapy -Anticipate Dc home soon. #Anemia -Mild, normocytic anemia -No s/s acute blood loss -She had scant hemoptysis on admission which resolved, ulikely to be contributing -Recheck in AM #Headache -Tension type by description -Likely from steroids, nebs -No warning s/s -Monitor #Sinus tach -Multifactorial due to hypoxia, illness, and beta agonism -EKG reviewed -TSH normal -Continue low dose metoprolol for now. Unlikely to need on discharge #History of hypothyroidism -TSH normal -Not on meds I spent a total of 35 minutes coordinating, documenting, and providing care for this patient excluding time spent in the performance of separately billed serv ices. This included personally reviewing all current laboratories and imaging studies, medical reconciliation, outpatient chart review and discussion with specialists Admission and Anticipated Discharge Date Admission Date: June 14, 2025 Subjective c/o headache. worse in neck, posterior head. still coughing and wheezing but improved. No f/c vision changes neck stiffness cp palp SOB abd pain nvd Physical Exam Physical Exam: Vitals and labs reviewed General: Well appearing, NAD HEENT: EOMI, PERRLA Neck: Supple Cardiac: RRR no rubs gallops or murmurs Lungs: exp wheezing Abd: S NT ND BS positive MSK: Full ROM. No obvious deformities Ext: No Edema cyanosis Skin: Warm, Dry Neuro: AOx3 No focal deficits. Psych: Normal Mood Results & Data Results & Data Vital Signs (Past 12 Hours) Vital Signs Temp Pulse Pulse Resp BP Pulse Ox O2 Del Method 06/16/25 09:00 Room Air 06/16/25 07:45 98 H 06/16/25 07:43 36.7 C 89 18 118/70 95 Room Air 06/16/25 07:06 68 16 99 Room Air 06/16/25 05:07 95 H 06/16/25 04:11 36.6 C 63 18 120/77 95 Room Air 06/16/25 00:25 76 17 95 Room Air 06/15/25 23:19 36.8 C 85 18 110/63 97 Room Air Laboratory Results Abnormal lab results 06/16/25 Range/Units 08:17 Hgb 11.1 L (12.0-16.0) g/dl
[2025-06-17 07:13] VITALS: RESP 18
--- NOTE | 2025-06-17 07:40 | Pulmonology Progress Note ---
Date of Service June 17, 2025 Assessment & Plan (1) COPD (chronic obstructive pulmonary disease): (2) Hemoptysis: Plan Impression: 55-year-old female with probable COPD admitted with shortness of breath and wheezing. She had scant hemoptysis. Her CT scan shows no significant parenchymal abnormality. No evidence of pneumonia. She is clinically improved today Recommendations: 1. Probable COPD. Complete 5-day course of oral prednisone. At discharge, the patient can be started on Trelegy 100, 1 puff daily and as needed albuterol. Would recommend outpatient follow-up with pulmonary function tests in 2 to 4 weeks 2. No evidence of pneumonia. Continue azithromycin for acute exacerbation of COPD. Total 5-day course recommended 3. Hemoptysis: Resolved 4. Hypoxemia: Appears resolved. Recommend assessing the patient for supplemental oxygen prior to discharge Patient is doing well, she can likely dismiss from the hospital. Would be happy to see her back in pulmonary clinic in follow-up in 2 to 4 weeks. Pulmonary signing off. Feel free to contact us with questions or concerns Admission and Anticipated Discharge Date Admission Date: June 14, 2025 Subjective Patient seen and examined. EMR reviewed. The patient reports that she is feeling better. She has been ambulatory and walking around the hallway into the bathroom without any coughing wheezing or shortness of breath. She states she feels much better. She is ready to go home Review of Systems 2 Review of Systems: All systems reviewed & are unremarkable except as noted in Subjective Physical Exam 2 Constitutional: no acute distress and not ill appearing Neck: trachea midline, no thyromegaly Respiratory: no cough and not tachypneic Auscultation: no crackles and no wheezes Cardiovascular: RRR, no murmur, no edema Gastrointestinal (Abdomen): normal bowel sounds, soft, nontender, no hepatosplenomegaly Musculoskeletal: Extremities: extremities normal to inspection Skin: no rashes, warm and dry Lymphatic: no cervical lymphadenopathy Results & Data Results & Data Vital Signs (Past 12 Hours) Vital Signs Temp Pulse Resp BP Pulse Ox O2 Del Method 06/17/25 07:11 72 18 95 Room Air 06/17/25 03:16 36.6 C 83 17 126/79 98 Room Air 06/17/25 00:55 71 20 96 Room Air 06/16/25 23:12 36.8 C 68 16 112/66 97 Room Air 06/16/25 20:03 36.6 C 94 H 18 150/90 H 95 Room Air 06/16/25 20:00 Room Air 06/16/25 19:49 77 22 96 Room Air Laboratory Results 06/17/25 05:24 06/15/25 06:07 Diagnostic Findings No new imaging PG Care Time/CCT Total # of Minutes Spent Total Time Spent with Patient: Total time spent is greater than 50% in coordination of care (as documented) at patient's floor/unit and/or counseling patient: Coding Level of Care Code 81690 SUB INP/OBS CARE 2/35MIN Diagnoses COPD (chronic obstructive pulmonary disease) J44.9 Hemoptysis R04.2
[2025-06-17 08:15] VITALS: BP 113/70; PULSE 87; TEMP 98.2; O2SAT 91
--- NOTE | 2025-06-17 10:03 | Discharge Summary ---
Discharge Summary Date of Service June 17, 2025 Principal Dx & Hospital Course #1 = Principal Diagnosis (1) COPD (chronic obstructive pulmonary disease): Plan 55F who was admitted for COPD exacerbation and scant hemoptysis. no O2 requirements. CTA neg for PE or PNA but did show bronchitis. pulm was consulted on admisison. started on azith and solumedrol. clinically improved. she was transitioned to prednisone yesterday and feeling well today. eager to go home. vitals and labs are stable for dc home. Pulm recommends OP PFTs and follow up in their office. benoit is non formulary so will start her on advair and albuterol HFA. #COPD exacerbation -Briefly hypoxic at 87% on admission and was on O2 overnight -CTA chest negative for PE, PNA. Did show some bronchitis. -Pulm was consulted for scant hemoptysis on admission, now resolved -Now on room air #Anemia -Mild, normocytic anemia -No s/s acute blood loss -Hgb stable #Headache resolved #Sinus tach resolved #History of hypothyroidism -TSH normal -Not on meds I spent a total of 39 minutes coordinating, documenting, and providing care for this patient excluding time spent in the performance of separately billed services. This included personally reviewing all current laboratories and imaging studies, medical reconciliation, outpatient chart review and discussion with specialists Notes For Next Care Provider Medication Changes From Visit advair and albuterol started short pred course Admission HPI Per Admitting Provider 55-year-old lady with PMH of allergic rhinitis, class I obesity, dermatitis, cervical DDD status post cervical spinal fusion presents to the ED with complaint of worsening cough/shortness of breath now associated with blood- tinged sputum, wheezing, subjective fever. Patient was evaluated in the ED about 5 days ago and was discharged with doxycycline for possible pneumonia. Patient reports compliance with the antibiotic. Since last 3 days [employer], patient reports worsening cough with greenish/yellow sputum now with blood-tinged, reports having subjective fever but denies measuring her temperature at home, reports noting wheezing. Patient denies history of asthma. Patient was noted to be hypoxic in the ED, saturating at 88% on room air and hence was put on nasal cannula oxygen. Patient reports some nausea, denies vomiting, reports poor appetite, denies pain or burning while passing urine. Patient denies acute changes in her bowel habit. Of note, patient reports long travel via car in February [to and from [place]] and in March/April [to/fro [place]]. Patient reports smoking marijuana, reports quit smoking tobacco in 1999, reports very occasional use of alcohol, denies recreational drug use. Medications reviewed with the patient at bedside. Plan of care discussed with the patient in detail, she voiced understanding. Full code Discharge Exam Vitals and labs reviewed General: Well appearing, NAD HEENT: EOMI, PERRLA Neck: Supple Cardiac: RRR no rubs gallops or murmurs Lungs: CTA no rhonchi wheezing or rales Abd: S NT ND BS positive MSK: Full ROM. No obvious deformities Ext: No Edema cyanosis Skin: Warm, Dry Neuro: AOx3 No focal deficits. Psych: Normal Mood Updated Medication List Medication Instructions Recorded Confirmed Type doxycycline hyclate 100 mg capsule 100 mg PO BID 7 days #14 caps 06/08/25 06/14/25 Rx albuterol sulfate 90 mcg/actuation 1 inh inhalation Q6H PRN shortness 06/17/25 Rx aerosol inhaler of breath or wheezing #6.7 grams fluticasone 100 mcg-salmeterol 50 1 inh inhalation DAILY #60 ea 06/17/25 Rx mcg/dose blistr powdr for inhalation (Advair Diskus) prednisone 20 mg tablet 20 mg PO DAILY 5 days #5 tabs 06/17/25 Rx Hospital Stay Data Consultations 06/14/25 12:53 ED Decision to Admit Stat 06/14/25 13:13 Consult Pulmonology Routine Diagnostic Imagining Performed 06/14/25 13:11 CT angio chest PE protocol Routine Pending Results Patient Have Any Pending Studies at Discharge: No Discharge Instructions Given to Patient (Per Discharging Provider) You were admitted for COPD exacerbation. Continue to take prednisone as prescribed. Dr Diaz would like to see you in a few weeks for a pulmonology follow up. Total Time Total Time Spent Total Time Spent (In Minutes): 39
== END 2025-06-17 11:37 | disposition home or self-care (01) | DRG 191 ==
LOC: ED 08:58 → SUATTDRO 13:19 → EDINP 13:19 → 2S 16:37